=== PATIENT | male | born 1955 | race Caucasian/White ===

== ENCOUNTER 2017-10-09 15:28 | Emergency (ER) | payer MEDICARE ==
[~2017-10-09] VITALS: Ht 180.3 cm; Wt 90.0 kg
[~2017-10-09 15:28] MED LIST: ASPIRIN325 MG PO; DIPROLENE AF 0.50 GM TOPICAL; KEFLEX500 MG PO; PEPCID20 MG PO; SPECTAZOLE 1 %15 GM TOPICAL; ZYPREXA5 MG PO
[2017-10-09 15:30] VITALS: Ht 180.3 cm; Wt 90.0 kg
[2017-10-09 16:17] LABS: BASOPHILS 0.2 % (0-2); EOSINOPHILS 0.8 % (0-7); HEMATOCRIT 33.1 % (42.0-54.0); HEMOGLOBIN 10.8 g/dL (13.5-17.5); IMMATURE GRANULOCYTES 0.6 % (0-5); LYMPHOCYTES 5.4 % (15-50); MCH 29.3 pg (26.0-34.0); MCHC 32.6 g/dL (31.0-37.0); MCV 89.7 fL (80.0-100.0); MEAN PLATELET VOLUME 9.2 fL (7.4-10.4); RBC 3.69 10x6/uL (4.20-6.10); RDW 14.6 % (11.5-14.5); WBC 13.6 10x3/uL (4.8-10.8)
[2017-10-09 16:31] LABS: PLATELET COUNT 398 10x3/uL (130-400)
[2017-10-09 16:32] LABS: ALBUMIN 2.1 g/dL (3.4-5.0); ALKALINE PHOSPHATASE 75 U/L (46-116); ALT (SGPT) 26 U/L (10-68); CALC OSMOLALITY 274 mosm/kg (275-300); CALCIUM 8.1 mg/dL (8.5-10.1); CARBON DIOXIDE 26.2 mmol/L (21.0-32.0); CHLORIDE - SERUM 100 mmol/L (98-107); CREATININE - SERUM 0.7 mg/dL (0.6-1.3); GLUCOSE 95 mg/dL (74-106); POTASSIUM - SERUM 4.2 mmol/L (3.5-5.1); PROTEIN - SERUM 7.2 g/dL (6.4-8.2); SODIUM 137 mmol/L (136-145); UREA NITROGEN 15 mg/dL (7-18); eGFR NON AFRICAN AMERICAN > 90 mL/min (90-120)
[2017-10-09] MEDS ORDERED: VOLTAREN75 MG PO (17:13)
[2017-10-09] MEDS ORDERED: VIBRAMYCIN 100100 MG PO (17:13)
[2017-10-09 17:48] VITALS: BP 120/62
== END 2017-10-09 17:49 | disposition home or self-care (01) ==
LOC: D.ER 15:28
PROVIDERS: Family Medicine
DX: L03.116 Cellulitis of left lower limb (principal); G35 Multiple sclerosis; F17.200 Nicotine dependence, unspecified, uncomplicated